=== PATIENT | female | born 1995 | race Caucasian/White ===

== ENCOUNTER 2017-06-04 16:21 | Emergency (ER) | payer OTHER ==
[~2017-06-04] VITALS: Ht 162.6 cm; Wt 60.8 kg
[~2017-06-04 16:21] MED LIST: OMEP20TA39 PO; RANI150 PO
[2017-06-04 16:29] VITALS: BP 169/115; PULSE 106; RESP 16; TEMP 99.2; O2SAT 100
[2017-06-04 16:52] LABS: BILIRUBIN, URINE NEG (NEG); BLOOD, URINE NEG (NEG); GLUCOSE,URINE NEG (NEG); KETONE, URINE NEG (NEG); NITRITE,URINE NEG (NEG); URINE COLOR YELLOW (YELLW/STRAW); URINE LEUKOCYTE ESTERASE NEG (NEG)
[2017-06-04 17:23] LABS: WBC, URINE 0-2 /hpf (0-5)
--- NOTE | 2017-06-04 17:25 | PD ---
HPI Chief Complaint: Cardiac Complaint Time Seen by Provider: 17:20 Travel History International Travel<30 days: No Contact w/Intl Traveler<30days: No Traveled to known affect area: No History of Present Illness HPI 21-year-old female patient with history of no significant past medical issues, presents to the ER today because she states that she had taken a workout supplement that is new to her today at 2 PM when she went to work out and about 40 minutes later started having palpitations and feeling jittery. She denies any chest pains, shortness of breath, lightheadedness, vomiting, or any other symptoms. She states it is settling down somewhat but she still does not feel right. She states that she has not taken this supplement before. Modifying Factors: None Associated Signs & Symptoms: New workout supplement, feeling jittery, palpitations Risk Factors: None PFSH Past Medical History Medical History: Denies Significant Hx Immunizations Current: Yes Tetanus Vaccination: > 5 Years Influenza Vaccination: No ?: Not LMP: 05/17/17 Past Surgical History Surgical History: No Previous Surgery Social History Alcohol Use: Yes (OCC) Tobacco Use: No (NEVER) Substance Use: No Allergies-Medications (Allergen,Severity, Reaction): Coded Allergies: No Known Allergies (Unverified Adverse Reaction, Unknown, 06/04/17) Reported Meds & Prescriptions Reported Meds & Active Scripts Active No Active Prescriptions or Reported Medications Review of Systems Except as stated in HPI: all other systems reviewed are Neg Physical Exam Narrative GENERAL: Well-developed young female patient currently and mild distress. Awake and oriented 3. SKIN: Focused skin assessment warm/dry. HEAD: Atraumatic. Normocephalic. EYES: Pupils equal and round. No scleral icterus. No injection or drainage. ENT: No nasal bleeding or discharge. Mucous membranes pink and moist. NECK: Trachea midline. No JVD. Supple. CARDIOVASCULAR: Regular rate and rhythm. No murmur appreciated. RESPIRATORY: No accessory muscle use. Clear to auscultation. Breath sounds equal bilaterally. GASTROINTESTINAL: Abdomen soft, non-tender, nondistended. Hepatic and splenic margins not palpable. MUSCULOSKELETAL: No obvious deformities. No clubbing. No cyanosis. No edema. NEUROLOGICAL: Awake and alert. No obvious cranial nerve deficits. Motor grossly within normal limits. Normal speech. PSYCHIATRIC: Appropriate mood and affect; insight and judgment normal. Data Data Last Documented VS Vital Signs Date Time Temp Pulse Resp B/P (MAP) Pulse Ox O2 Delivery O2 Flow Rate FiO2 06/04/17 17:08 108 Room Air 06/04/17 16:29 99.2 16 169/115 (133) 100 Orders Orders Urinalysis - C+S If Indicated (06/04/17 16:32) Ed Urine Pregnancytest Poc (06/04/17 17:02) Electrocardiogram (06/04/17 17:20) Complete Blood Count With Diff (06/04/17 17:20) Basic Metabolic Panel (Bmp) (06/04/17 17:20) Drug Screen, Random Urine (06/04/17 17:20) Sodium Chlor 0.9% 1000 Ml Inj (Ns 1000 M (06/04/17 18:00) Lorazepam (Ativan) (06/04/17 18:00) Ed Discharge Order (06/04/17 18:07) Labs Laboratory Tests Test 06/04/17 16:35 06/04/17 17:24 06/04/17 17:35 Urine Collection Type CLEAN CATCH Urine Color YELLOW Urine Turbidity CLEAR Urine pH 6.0 Urine Specific [place] LESS/EQUAL 1.005 Urine Protein NEG mg/dL Urine Glucose (UA) NEG mg/dL Urine Ketones NEG mg/dL Urine Occult Blood NEG Urine Nitrite NEG Urine Bilirubin NEG Urine Urobilinogen 0.2 MG/DL Urine Leukocyte Esterase NEG Urine WBC 0-2 /hpf Microscopic Urinalysis Comment CULT NOT INDICATED Urine Opiates Screen NEG Urine Barbiturates Screen NEG Urine Amphetamines Screen NEG Urine Benzodiazepines Screen NEG Urine Cocaine Screen NEG Urine Cannabinoids Screen NEG White Blood Count 13.3 TH/MM3 Red Blood Count 5.10 MIL/MM3 Hemoglobin 15.9 GM/DL Hematocrit 45.6 % Mean Corpuscular Volume 89.3 FL Mean Corpuscular Hemoglobin 31.2 PG Mean Corpuscular Hemoglobin Concent 35.0 % Red Cell Distribution Width 11.9 % Platelet Count 324 TH/MM3 Mean Platelet Volume 8.1 FL Neutrophils (%) (Auto) 84.7 % Lymphocytes (%) (Auto) 9.4 % Monocytes (%) (Auto) 3.9 % Eosinophils (%) (Auto) 0.6 % Basophils (%) (Auto) 1.4 % Neutrophils # (Auto) 11.2 TH/MM3 Lymphocytes # (Auto) 1.3 TH/MM3 Monocytes # (Auto) 0.5 TH/MM3 Eosinophils # (Auto) 0.1 TH/MM3 Basophils # (Auto) 0.2 TH/MM3 CBC Comment DIFF FINAL Differential Comment Blood Urea Nitrogen 10 MG/DL Creatinine 0.81 MG/DL Random Glucose 99 MG/DL Calcium Level 9.2 MG/DL Sodium Level 141 MEQ/L Potassium Level 3.5 MEQ/L Chloride Level 109 MEQ/L Carbon Dioxide Level 24.0 MEQ/L Anion Gap 8 MEQ/L Estimat Glomerular Filtration Rate 88 ML/MIN [facility] Medical Decision Making Medical Screen Exam Complete: Yes Emergency Medical Condition: Yes Medical Record Reviewed: Yes Interpretation(s) Laboratory Tests Test 06/04/17 16:35 06/04/17 17:24 06/04/17 17:35 White Blood Count 13.3 TH/MM3 (4.0-11.0) Hemoglobin 15.9 GM/DL (11.6-15.3) Neutrophils (%) (Auto) 84.7 % (16.0-70.0) Neutrophils # (Auto) 11.2 TH/MM3 (1.8-7.7) Chloride Level 109 MEQ/L (98-107) Estimat Glomerular Filtration Rate 88 ML/MIN (>89) Differential Diagnosis Medication side effect versus dysrhythmias versus dehydration versus metabolic issues versus coingestions Narrative Course EKG shows a sinus tachycardia. Vital signs is otherwise unremarkable. Lab work did not show significant metabolic issues and urine toxicology screen was otherwise negative. I suspect that she may have had a side effect of the diet supplement which she states has caffeine in it. Patient was given a small dose of Ativan to help with the symptoms. At this point, my plan would be to release her with follow-up to primary care physician as needed. She should avoid the supplement in the future. Be careful with caffeine intake. Return for any worsening in symptoms as needed. The plan has been discussed with her and she states understanding. Diagnosis Primary Impression: Medication side effect Scripts No Active Prescriptions or Reported Meds Disposition: 01 DISCHARGE HOME Condition: Stable Toan Lowe MD Jun 04, 2017 17:25
[2017-06-04 17:43] LABS: AUTOMATED NEUTROPHIL # 11.2 TH/MM3 (1.8-7.7); BASOPHIL # 0.2 TH/MM3 (0-0.2); BASOPHIL % 1.4 % (0.0-2.0); EOSINOPHIL # 0.1 TH/MM3 (0-0.4); EOSINOPHIL % 0.6 % (0.0-4.0); HEMATOCRIT 45.6 % (35.0-46.0); HEMOGLOBIN 15.9 GM/DL (11.6-15.3); LYMPH % 9.4 % (9.0-44.0); LYMPHOCYTE # 1.3 TH/MM3 (1.0-4.8); MEAN CELL VOLUME 89.3 FL (80.0-100.0); MEAN CORPUSCULAR HEMOGLOBIN 31.2 PG (27.0-34.0); MEAN PLATELET VOLUME 8.1 FL (7.0-11.0); MONO % 3.9 % (0.0-8.0); MONOCYTE # 0.5 TH/MM3 (0-0.9); NEUT % 84.7 % (16.0-70.0); PLATELET COUNT 324 TH/MM3 (150-450); RED CELL DISTRIBUTION WIDTH 11.9 % (11.6-17.2); WHITE BLOOD COUNT 13.3 TH/MM3 (4.0-11.0)
[2017-06-04 17:58] LABS: CALCIUM 9.2 MG/DL (8.5-10.1)
[2017-06-04] MEDS ORDERED: LORazepam 0.5 MG TAB PO ONE (18:00)
[2017-06-04] MEDS ORDERED: SODIUM CHLOR 0.9% 1000 ML INJ 1,000 ML IV ONE (18:00)
[2017-06-04 18:02] LABS: CREATININE 0.81 MG/DL (0.50-1.00)
[2017-06-04 18:18] VITALS: BP 137/69; PULSE 99; RESP 16; O2SAT 99
--- NOTE | 2017-06-05 16:11 | EKG ---
Date Performed: 06/04/2017 Time Performed: 17:25:39 PTAGE: 21 years EKG: SINUS TACHYCARDIA ABNORMAL RHYTHM ECG NO PREVIOUS TRACING DOCTOR: Jeff Leonard Interpretating Date/Time 06/05/2017 16:08:36
== END 2017-06-04 18:30 | disposition home or self-care (01) ==
LOC: PHED 16:21
DX: R00.0 Tachycardia, unspecified (principal)
CPT/HCPCS: 80048; 80307; 81001; 84703; 85025; 93005; 99284